=== PATIENT | male | born 1965 | race Caucasian/White ===

== ENCOUNTER 2018-06-15 10:26 | Day surgery (SDC) | payer BC ==
[2018-06-13 17:09] VITALS: BMI 26.6
[~2018-06-15 10:26] MED LIST: LACTATED RINGERS 1,000 ML IV SCH
[2018-06-15 10:59] VITALS: RESP 18; TEMP 98.2
[2018-06-15] MEDS ORDERED: LIDOCAINE 1% 20 ML VIAL (10MG/ML) FOR IV START INTRADERMA ONE (11:00)
[2018-06-15] MEDS ORDERED: PROPOFOL 10 MG/ML 20 ML VIAL IV ONE (11:37)
--- NOTE | 2018-06-15 11:58 | P.PCN ---
Date of Procedure: 06/15/18 Procedure(s) Performed: BRIEF HISTORY: Patient is a 53-year-old pleasant white male, scheduled for an elective colonoscopy as a part of screening for colon neoplasia. He does have family history of colon cancer diagnosis in his mom at age 60.. PROCEDURE PERFORMED: Colonoscopy. PREOPERATIVE DIAGNOSIS: Screening for colon cancer. IV sedation per Anesthesia. PROCEDURE: After informed consent was obtained, the patient, was brought into the endoscopy unit. IV sedation was administered by Anesthesia under continuous monitoring. Digital rectal examination was normal. Initially the Olympus CF- 160 flexible video colonoscope was then inserted in the rectum, gradually advanced into the cecum without any difficulty. Careful examination was performed as the scope was gradually being withdrawn. Ileocecal valve and the appendiceal orifice were visualized and appeared normal. Prep was excellent. Mucosa of the cecum, ascending colon, transverse colon, descending colon, sigmoid colon, and rectum appeared normal. Retroflexion was performed in the rectum and no lesions were seen. The patient tolerated the procedure well. IMPRESSION: Normal-appearing colon from rectum to cecum with no evidence of colorectal neoplasia. RECOMMENDATIONS: Findings of this examination were discussed with the patient as well as his family. He was advised to have a repeat screening colonoscopy in 5 years from now because of family history of colon cancer..
[2018-06-15 12:19] VITALS: BP 145/89; PULSE 73
== END 2018-06-15 12:30 | disposition home or self-care (01) ==
LOC: ORWHC2ENDO 10:26
PROVIDERS: ATTEND Internal Medicine Gastroenterology
DX: Z12.11 Encounter for screening for malignant neoplasm of colon (principal); Z80.0 Family history of malignant neoplasm of digestive organs; Z79.82 Long term (current) use of aspirin; Z72.0 Tobacco use
CPT/HCPCS: J2704; G0105

== ENCOUNTER 2019-10-08 21:10 | Observation (INO) | payer BC ==
[2019-10-09] MEDS: MORPHINE SULFATE 2 MG/ML SYRINGE IVP PRN ×2 (00:40→06:30)
[2019-10-09] MEDS ORDERED: MORPHINE SULFATE 4 MG/ML SYRINGE IVP PRN (13:21)
[2019-10-09] MEDS ORDERED: HYDROcodone/APAP 7.5-325MG 1 EACH TAB PO PRN (13:22)
[2019-10-09] MEDS ORDERED: VANCOMYCIN IV PER PHARMACY 1 EACH MISC MISCELLANE PRN (13:23)
[2019-10-09] MEDS ORDERED: VANCOMYCIN 1,500 MG in SODIUM CHLORIDE 0.9% 250 ML IVPB ONE (14:00)
--- NOTE | 2019-10-09 14:00 | P.CNOR ---
History of Present Illness - [facility] Consult date: 10/09/19 Consult reason: joint pain History of present illness: Patient is a 54-year-old male who was transferred from [facility] last night to [facility] with regards to bilateral hand cellulitis. Patient states that he noticed a pimple on the left arm, more in the antecubital fossa region last Tuesday. He did pop it on his own and had no other issues. Over the next few days he started to notice progressive swelling, redness and pain in the bilateral hands. Ice Tuesday, patient felt very feverish and sick, he reported to [facility] yesterday due to feeling worse in the pain and swelling of the hands. They transferred patient to [facility], he was admitted under internal medicine. Patient was evaluated today at bedside, Dr. Hester and I were both present to examine the patient. Patient complains of more and swelling involving the left hand. The right hand is tolerable at this time but has worsened over the last few days. Patient denies any previous surgery involving the bilateral hands. He takes no medications, he has no significant past medical history. He admits to quitting drinking about 18 years ago, he occasionally smokes cigars. He denies any IV drug use. 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 He cannot remember anything specifically happening at work that would contribute to this current infection. He has no other orthopedic complaints at this time Review of Systems Constitutional: Reports as per [facility] Past Medical History Past Medical History: No Reported History Additional Past Medical History / Comment(s): HX SHATTERED LT HEEL. History of Any Multi-Drug Resistant Organisms: None Reported Past Surgical History: Orthopedic Surgery Additional Past Surgical History / Comment(s): LT KNEE SCOPE. Past Anesthesia/Blood Transfusion Reactions: No Reported Reaction Past Psychological History: No Psychological Hx Reported Smoking Status: Light tobacco smoker Past Alcohol Use History: Heavy Additional Past Alcohol Use History / Comment(s): SMOKES CIGAR DAILY. HX ETOH ABUSE, QUIT 2000 Past Drug Use History: None Reported - Past Family History Mother Family Medical History: Cancer Medications and Allergies Home Medications Medication Instructions Recorded Confirmed Type Aspirin EC [Ecotrin Low Dose] 81 mg PO HS 06/13/18 10/09/19 History Multivitamins, Thera [Multivitamin 1 tab PO HS 06/13/18 10/09/19 History (formulary)] Allergies Allergy/AdvReac Type Severity Reaction Status Date / Time No Known Allergies Allergy Verified 10/09/19 08:19 Physical Examination Left upper extremity: Obvious swelling, erythema and soft tissue swelling present over the 1st MCP joint. There is fluctuance in changes in the skin noted in that area. There is obvious swelling of the entire hand. He has moderate stiffness throughout the digits when attempting to flex the hand. His sensory exam to light touch is intact. There is no pain along the flexor aspect of the hand. Radial pulses 2+. Right upper extremity: Obvious swelling, erythema and soft tissue swelling noted more over the dorsum of the hand. His full range of motion with extension and flexion. There is skin changes and fluctuance present over the dorsum of the hand. Sensory exam to light touch throughout the areas intact. No pain along the flexor aspect of the hand. Radial pulses 2+ Assessment and Plan Plan: Imaging: I did order bilateral hand x-rays, awaiting results Assessment: 1. Multifocal bilateral hand abscess 2. Cellulitis bilateral hands Plan: Multiple lab tests were ordered for this patient. We will plan to proceed with incision and drainage with irrigation and debridement of the bilateral hand abscesses on 10/10/2019. Infectious disease recommendations Internal medicine recommendations Obtain consent Nothing by mouth after midnight Time with Patient: Less than 30
[2019-10-09 14:13] LABS: Basophils % (A) 0 %; Eosinophils # (A) 0.1 k/uL (0-0.7); Eosinophils % (A) 0 %; HCT 39.7 % (39.0-53.0); HGB 13.3 gm/dL (13.0-17.5); Lymphocytes # (A) 0.8 k/uL (1.0-4.8); Lymphocytes % (A) 5 %; MCH 29.9 pg (25.0-35.0); MCHC 33.7 g/dL (31.0-37.0); MCV 88.9 fL (80.0-100.0); Mean Platelet Volume 8.2; Monocytes # (A) 0.9 k/uL (0-1.0); Monocytes % (A) 6 %; Neutrophils # (A) 13.3 k/uL (1.3-7.7); Neutrophils % (A) 88 %; Platelet Count 213 k/uL (150-450); RBC 4.46 m/uL (4.30-5.90); WBC 15.2 k/uL (3.8-10.6)
[2019-10-09 14:22] LABS: ALT 20 U/L (21-72); AST 22 U/L (17-59); African American GFR (CKD) >90 (>60 ml/min/1.73 sqM); Albumin 3.5 g/dL (3.5-5.0); Alkaline Phosphatase 75 U/L (38-126); Anion Gap 9 mmol/L; Blood Urea Nitrogen 12 mg/dL (9-20); C Reactive Protein 85.3 mg/L (<10.0); Calcium 8.4 mg/dL (8.4-10.2); Carbon Dioxide 23 mmol/L (22-30); Chloride 104 mmol/L (98-107); Glucose 146 mg/dL (74-99); Non-African American GFR(CKD) 88 (>60 ml/min/1.73 sqM); Potassium 3.7 mmol/L (3.5-5.1); Sodium 136 mmol/L (137-145); Total Bilirubin 0.7 mg/dL (0.2-1.3); Total Protein 6.6 g/dL (6.3-8.2)
[2019-10-09] MEDS: FAMOTIDINE 20 MG TAB PO SCH ×2 (14:39→20:34)
[2019-10-09] MEDS: SODIUM CHLORIDE 0.9% 1,000 ML IV SCH (14:39)
[2019-10-09] MEDS: KETOROLAC 30 MG/ML 1 ML VIAL IVP PRN (14:40)
[2019-10-09 15:17] LABS: Erythrocyte Sedimentation Rate 47 mm/hr (0-15)
[2019-10-09 15:20] LABS: Prothrombin Time 10.8 sec (9.0-12.0)
--- NOTE | 2019-10-09 16:13 | XR ---
EXAMINATION TYPE: XR hand complete bilateral DATE OF EXAM: 10/09/2019 CLINICAL HISTORY: Bilateral hand pain and swelling TECHNIQUE: Frontal, lateral and oblique images of the bilateral hands were obtained. COMPARISON: None. FINDINGS: There is no acute fracture/dislocation evident in either hand. Bony proliferative changes seen of the second metacarpal phalangeal joint on the right and joint space narrowing of the first me tacarpal phalangeal joint as well as the first carpometacarpal joint. A punctate density is seen of t he volar aspect of the soft tissues near the proximal middle phalanx of the third digit measuring 2 m m. Radiopaque foreign body should be evaluated for. On the right there are similar appearing linear d ensities of the radial soft tissues overlying the base of the proximal phalanx also measuring 2 mm an d on the radial aspect of the fifth digit overlying the base of the middle phalanx. There is diffuse soft tissue swelling of the second digit most prominent proximally and radially. Mild joint space mathieu rowing of the first carpometacarpal joint and bony proliferative change with joint space narrowing of the fourth distal interphalangeal joint of the left hand. IMPRESSION: 1. Linear radiopaque foreign bodies of the bilateral hands as detailed above. Focal soft tissue swell ing is seen of the second digit of the left hand surrounding the foreign body. Exploration is recomme nded. 2. Acute fracture or dislocation of either hand. 3. Mild bilateral arthropathy as detailed above.
--- NOTE | 2019-10-09 16:14 | P.HPIM ---
History of Present Illness Patient is a 54-year-old transferred from [facility] for abscess of the left hands and let us of the right hand. Patient started having these symptoms about 45 days ago started as a pimple was having low-grade fevers as well. Patient received couple antibiotics at the [facility] unsure what antibiotics he received patient has an area of pimple-like pocket with pus draining out of it for from which we'll obtain cultures both anaerobic and aerobic, blood cultures were obtained at the other facility. Patient will be started on vancomycin. 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 Patient does smoke a cigar here and there mostly less than 1 a day. Review of Systems REVIEW OF SYSTEMS: CONSTITUTIONAL: As mentioned in HPI HEENT: No recent visual problems or hearing problems. Denied any sore throat. CARDIOVASCULAR: No chest pain, orthopnea, PND, no palpitations, no syncope. PULMONARY: No shortness of breath, no cough, no hemoptysis. GASTROINTESTINAL: No diarrhea, no nausea, no vomiting, no abdominal pain. NEUROLOGICAL: No headaches, no weakness, no numbness. HEMATOLOGICAL: Denies any bleeding or petechiae. GENITOURINARY: Denies any burning micturition, frequency, or urgency. MUSCULOSKELETAL/RHEUMATOLOGICAL: Denies any joint pain, swelling, or any muscle pain. ENDOCRINE: Denies any polyuria or polydipsia. The rest of the 14-point review of systems is negative. Past Medical History Past Medical History: No Reported History Additional Past Medical History / Comment(s): HX SHATTERED LT HEEL. History of Any Multi-Drug Resistant Organisms: None Reported Past Surgical History: Orthopedic Surgery Additional Past Surgical History / Comment(s): LT KNEE SCOPE. Past Anesthesia/Blood Transfusion Reactions: No Reported Reaction Past Psychological History: No Psychological Hx Reported Smoking Status: Light tobacco smoker Past Alcohol Use History: Heavy Additional Past Alcohol Use History / Comment(s): SMOKES CIGAR DAILY. HX ETOH ABUSE, QUIT 2000 Past Drug Use History: None Reported - Past Family History Mother Family Medical History: Cancer Medications and Allergies Home Medications Medication Instructions Recorded Confirmed Type Aspirin EC [Ecotrin Low Dose] 81 mg PO HS 06/13/18 10/09/19 History Multivitamins, Thera [Multivitamin 1 tab PO HS 06/13/18 10/09/19 History (formulary)] Allergies Allergy/AdvReac Type Severity Reaction Status Date / Time No Known Allergies Allergy Verified 10/09/19 08:19 Physical Exam Vitals: Vital Signs Temp Pulse Resp BP Pulse Ox 10/09/19 07:00 98.5 F 108 H 12 134/79 99 10/08/19 23:12 98.9 F 92 15 127/68 Intake and Output 10/09/19 10/09/19 10/09/19 06:59 14:59 22:59 Intake Total 450 Balance 450 Intake: IV 450 Sodium Chloride 0.9% 1, 200 000 ml @ 100 mls/hr IV . Q10H [facility] Rx#:[id number] Vancomycin 1,500 mg In 250 Sodium Chloride 0.9% 250 ml @ 125 mls/hr IVPB ONCE ONE Rx#:[id number] Other: Voiding Method Toilet Weight 78 kg PHYSICAL EXAMINATION: GENERAL: The patient is alert and oriented x3, not in any acute distress. Well developed, well nourished. HEENT: Pupils are round and equally reacting to light. EOMI. No scleral icterus. No conjunctival pallor. Normocephalic, atraumatic. No pharyngeal erythema. No thyromegaly. CARDIOVASCULAR: S1 and S2 present. No murmurs, rubs, or gallops. PULMONARY: Chest is clear to auscultation, no wheezing or crackles. ABDOMEN: Soft, nontender, nondistended, normoactive bowel sounds. No palpable organomegaly. MUSCULOSKELETAL: No joint swelling or deformity. EXTREMITIES: No cyanosis, clubbing, or pedal edema. Patient had swelling in both hands left hand had an abscess in the base of the, cellulitis of the right hand NEUROLOGICAL: Gross neurological examination did not reveal any focal deficits. SKIN: No rashes. Results CBC & Chem 7: 10/09/19 13:51 10/09/19 13:51 Labs: Abnormal Lab Results - Last 24 Hours (Table) 10/09/19 10/09/19 Range/Units 13:51 13:51 WBC 15.2 H (3.8-10.6) k/uL Neutrophils # 13.3 H (1.3-7.7) k/uL Lymphocytes # 0.8 L (1.0-4.8) k/uL ESR 47 H (0-15) mm/hr Sodium 136 L (137-145) mmol/L Glucose 146 H (74-99) mg/dL ALT 20 L (21-72) U/L C-Reactive Protein 85.3 H (<10.0) mg/L Thrombosis Risk Factor Assmnt - Choose All That Apply Each Factor Represents 1 point: Age 41-60 years Other Risk Factors: No Other congenital or acquired thrombophilia - If yes, enter type in comment: No Thrombosis Risk Factor Assessment Total Risk Factor Score: 1 Thrombosis Risk Factor Assessment Level: Low Risk Assessment and Plan Plan: 1 bilateral hand cellulitis and abscess of the left hand: Patient was started on vancomycin no history of MRSA in the past I did not appreciate any lymphadenopathy in the elbow or axillary area. Infectious disease was consulted. Arthritic surgery was consulted patient may need drainage of the abscess of on the base of the left index finger. -Sepsis secondary to abscess and cellulitis of the hands. Patient was started on IV fluids.
[2019-10-10] MEDS: KETOROLAC 30 MG/ML 1 ML VIAL IVP PRN ×3 (00:46→20:56)
[2019-10-10] MEDS ORDERED: ACETAMINOPHEN TAB 325 MG TAB PO PRN (01:00)
[2019-10-10] MEDS ORDERED: VANCOMYCIN 1,500 MG in SODIUM CHLORIDE 0.9% 250 ML IVPB SCH (06:00)
[2019-10-10] MEDS ORDERED: IV FLUID CONTINUATION 1,000 ML IV ONE (06:23)
[2019-10-10] MEDS ORDERED: ONDANSETRON 4 MG/2 ML VIAL IVP ONE (06:33)
[2019-10-10] MEDS ORDERED: PROPOFOL 10 MG/ML 20 ML VIAL IV ONE (06:54)
[2019-10-10] MEDS ORDERED: MIDAZOLAM 2 MG/2 ML VIAL ONE (06:54)
[2019-10-10] MEDS ORDERED: fentaNYL (PF) 50 MCG/ML 2 ML AMP ONE (06:54)
[2019-10-10] MEDS ORDERED: LIDOCAINE 1% INJ 10MG/ML (20 ML MDV) ONE (06:54)
[2019-10-10] MEDS ORDERED: ceFAZolin 1,000 MG in SODIUM CHLORIDE 0.9% 1,000 ML IRRIGATION ONE ×4 (07:41)
[2019-10-10] MEDS ORDERED: LACTATED RINGERS 1,000 ML IV ONE (07:46)
--- NOTE | 2019-10-10 08:04 | P.OP ---
Date of Procedure: 10/10/19 Preoperative Diagnosis: Multifocal abscesses right and left hand Postoperative Diagnosis: Same Procedure(s) Performed: Incision and drainage bilateral dorsal hand abscesses/irrigation and debridement Anesthesia: MILANA Surgeon: Jez Hester Estimated Blood Loss (ml): 30 Pathology: other (Deep cultures) Condition: stable Disposition: PACU Indications for Procedure: The patient's a 54-year-old male who presented with 5-6 day history of progressive bilateral dorsal hand swelling/abscesses. He was transferred from an outside institution. A discussion of the risks and benefits of operative intervention was made with the patient. Specific risks to include persistence of infection and possible need for subsequent procedures was discussed. Informed consent was obtained. Operative Findings: As below Description of Procedure: The patient was brought to the operating room, and after induction of general anesthesia both upper extremities were prepped and draped in normal fashion. I began on the left side. The tourniquet was inflated to 250 mmHg. A Bennell type incision was made along the dorsum of the left index MCP joint extending to the dorsal hand. Significant purulence was expressed. Deep cultures were obtained. The dissection was made down to level of the extensor tendon. It did not appear to enter the joint. The wound edges were sharply debrided with a scalpel. This was copiously irrigated with normal saline. A Amada drain was placed. The wound edges were loosely reapproximated with simple 3-0 nylon suture. The tourniquet was deflated less than 20 minutes total tourniquet time. Attention was then paid towards the right hand. The tourniquet was inflated to 250 mmHg. Three 2 cm dorsal hand incisions were then made over the palpable abscesses. Significant purulence was expressed. Deep cultures were obtained. Dissection was made down to level of the extensor tendons. The wound edges were sharply debrided with a scalpel. The wounds were loosely irrigated with normal saline. A Amada drain was placed. The wound edges were loosely reapproximated with simple 3-0 nylon sutures. A sterile dressing was applied. The tourniquet was deflated less than 20 minutes total tourniquet time. The patient was then awoken from general anesthesia and transferred to recovery room in good condition. Blood loss was estimated at 30 mL. No complications were incurred. Sponge and needle counts were correct at the end of the case.
[2019-10-10] MEDS: HYDROmorphone 1 MG/ML 1 ML SYRINGE IVP ONE ×4 (08:12→08:28)
[2019-10-10] MEDS: FAMOTIDINE 20 MG TAB PO SCH ×2 (09:12→19:56)
[2019-10-10] MEDS: SODIUM CHLORIDE 0.9% 1,000 ML IV SCH ×3 (09:14→19:41)
--- NOTE | 2019-10-10 09:32 | P.CONS ---
History of Present Illness - Reason for Consult Consult date: 10/09/19 hand cellulitis Requesting physician: Jerman Lund - Chief Complaint Bilateral hand pain and swelling x few days - History of Present Illness Patient is a 54-year male who has been transferred from [facility] for evaluation of bilateral hand abscess and cellulitis the patient symptoms started last Tuesday and apparently the patient had noticed to have a small pimple that he squeezed on it subsequently he noticed the dorsum of bilateral hand started getting swollen and red the patient describing the area to be painful pain is throbbing almost 10-10 with severity with associated swelling and redness did have a small area that opened up on the right hand with minimal purulent drainage the patient be complaining of feeling feverish and sic k patient was initially evaluated in the hospital but hospital subsequent has been transferred to [facility] for further management of his bilateral hand abscess and cellulitis, patient has been evaluated by orthopedics and the patient did have x-rays of the hand done which did show some focal soft tissue swelling left hand with some foreign body, the patient has been started on vancomycin with plan for a surgical drainage of this abscess tomorrow infectious was consulted for further recommendation to guide antibiotic therapy. The patient did have a elevated white count of 15,000 and a fever of 99.8 Review of Systems CONSTITUTIONAL: Positive for weakness. Fever EYES: No complaint. ENT:No complaint. RESPIRATORY: No complaint. CARDIOVASCULAR: No complaint. GENITOURINARY: No complaint. GASTROINTESTINAL: No complaint. MUSCULOSKELETAL: As per history of present illness. INTEGUMENTARY: As per history of present illness. PSYCHOLOGICAL: No complaint. ENDOCRINE: No complaint. NEUROLOGIC: No complaint. Past Medical History Past Medical History: No Reported History Additional Past Medical History / Comment(s): HX SHATTERED LT HEEL. History of Any Multi-Drug Resistant Organisms: None Reported Past Surgical History: Orthopedic Surgery Additional Past Surgical History / Comment(s): LT KNEE SCOPE. Past Anesthesia/Blood Transfusion Reactions: No Reported Reaction Past Psychological History: No Psychological Hx Reported Smoking Status: Light tobacco smoker Past Alcohol Use History: Heavy Additional Past Alcohol Use History / Comment(s): SMOKES CIGAR DAILY. HX ETOH ABUSE, QUIT 2000 Past Drug Use History: None Reported - Past Family History Mother Family Medical History: Cancer Medications and Allergies Home Medications Medication Instructions Recorded Confirmed Type Aspirin EC [Ecotrin Low Dose] 81 mg PO HS 06/13/18 10/09/19 History Multivitamins, Thera [Multivitamin 1 tab PO HS 06/13/18 10/09/19 History (formulary)] Allergies Allergy/AdvReac Type Severity Reaction Status Date / Time No Known Allergies Allergy Verified 10/09/19 08:19 Physical Exam Vitals: Vital Signs Temp Pulse Resp BP Pulse Ox 10/09/19 20:46 99.8 F H 100 16 132/63 95 10/09/19 15:00 98 F 107 H 12 122/74 96 10/09/19 07:00 98.5 F 108 H 12 134/79 99 Intake and Output 10/09/19 10/09/19 10/10/19 14:59 22:59 06:59 Intake Total 450 300 Balance 450 300 Intake: IV 450 300 Sodium Chloride 0.9% 1, 200 300 000 ml @ 100 mls/hr IV . Q10H [facility] Rx#:[id number] Vancomycin 1,500 mg In 250 Sodium Chloride 0.9% 250 ml @ 125 mls/hr IVPB ONCE ONE Rx#:[id number] GENERAL DESCRIPTION: Middle-aged male lying in bed, no distress. No tachypnea or accessory muscle of respiration use. HEENT: Shows Pallor , no scleral icterus. Oral mucous membrane is dry. No pha ryngeal erythema or thrush NECK: Trachea central, no thyromegaly. LUNGS: Unlabored breathing. Clear to auscultation anteriorly. No wheeze or crackle. HEART: S1, S2, regular rate and rhythm. No loud murmur ABDOMEN: Soft, no tenderness , guarding or rigidity, no organomegaly EXTREMITIES: Bilateral hand dorsum with significant swelling redness which is mostly marked at the base of the second MCP joint warm and tender to touch SKIN: No rash, no masses palpable. NEUROLOGICAL: The patient is awake, alert, oriented x3, mood and affect normal. Results CBC & Chem 7: 10/09/19 13:51 10/09/19 13:51 Labs: Abnormal Lab Results - Last 24 Hours (Table) 10/09/19 10/09/19 Range/Units 13:51 13:51 WBC 15.2 H (3.8-10.6) k/uL Neutrophils # 13.3 H (1.3-7.7) k/uL Lymphocytes # 0.8 L (1.0-4.8) k/uL ESR 47 H (0-15) mm/hr Sodium 136 L (137-145) mmol/L Glucose 146 H (74-99) mg/dL ALT 20 L (21-72) U/L C-Reactive Protein 85.3 H (<10.0) mg/L Microbiology - Last 24 Hours (Table) 10/09/19 14:50 Anaerobic Culture - Preliminary Hand - Right 10/09/19 14:50 Wound Culture - Preliminary Hand - Right Assessment and Plan Assessment: patient admitted hospital with sepsis in this patient who did have a fever , mild tachycardia and elevated white count sources bilateral hand abscess more marked at the left hand dorsum at the base of second MCP joint will need to cover for gram-positive skin raphael such as strep and staph aureus and cover for community associated MRSA (1) Hand abscess Current Visit: Yes Status: Acute Code(s): L02.519 - CUTANEOUS ABSCESS OF UNSPECIFIED HAND SNOMED Code(s): 9984127 (2) Sepsis Current Visit: Yes Status: Acute Code(s): A41.9 - SEPSIS, UNSPECIFIED ORGANISM SNOMED Code(s): 39381681 Plan: 1-vancomycin pharmacy to dose target trough of 15 while watching his kidney function and vancomycin trough closely 2-deep cultures at the time of surgical drainage tomorrow We will follow on clinical condition and cultures to further adjust medication if needed Thank you for this consultation will follow this patient along with you Time with Patient: Greater than 30
[2019-10-10] MEDS ORDERED: CALCIUM CARBONATE 500 MG CHEWABLE PO PRN (12:05)
--- NOTE | 2019-10-10 12:14 | CDI ---
Documentation Clarification Form Date: 10/10/2019 12:02:00 PM From: Mckenna Suarez RN, CCDS Admit Date: 10/08/2019 11:09:00 PM Patient Name: Carlos oRsas Visit Number: [id number] ATTENTION: The Clinical Documentation Specialists (CDI) and [facility] Coding Staff appreciate your assistance in clarifying documentation. Please respond to the clarification below the line at the bottom and electronically sign. The CDI & [facility] Coding staff will review the response and follow-up if needed. Please note: Queries are made part of the Legal Health Record. If you have any questions, please contact the author of this message via ITS. Dr. Jez Hester Per your progress notes/operative note, a debridement was performed on 10/10 and requires further specificity. History/Risk Factors No documented H Clinical Indicators: Presented to [facility] with abscess to hands with fever Treatment: 10/10 Procedure: "Incision and drainage bilateral dorsal hand abscesses/irrigation and debridement. The wound edges were sharply debrided with a scalpel." Five elements required for accurate and compliant documentation of a debridement: 1. Technique used (e.g., excisional, excised, cutting, etc.) 2. Instrument(s) used (e.g., scalpel, curette, etc.) 3. Nature of the tissue removed (e.g., necrotic, devitalized tissues, non- viable tissue, etc.) 4. Appearance and size of the wound (e.g., down to fresh bleeding tissue, 7cm x 10cm, etc.) 5. Depth of the debridement* (e.g., skin, subcutaneous tissue, fascia, muscle, bone, etc.) In order to capture the severity of condition and code the appropriate procedure; could you please document the following: Excisional debridement (the removal of necrotic, devitalized tissue or slough by means of cutting away of tissue) Non-excisional debridement (the removal of necrotic, devitalized tissue or slough by means of flushing, brushing, or washing. (Irrigation) Other; please specify Unable to determine (Last Revision: January 2018) Wounds were debrided with a scapel excising necrotic tissue down to the level of the tendon sheath/subcutaneous tissue. Left hand incision was 7cm, right hand 3cm, 3cm, 3cm. [facility]
[2019-10-10] MEDS: VANCOMYCIN 1,500 MG in SODIUM CHLORIDE 0.9% 250 ML IVPB SCH (12:18)
--- NOTE | 2019-10-10 15:41 | P.PN ---
Subjective Progress Note Date: 10/10/19 Principal diagnosis: Patient is a 54-year-old transferred from [facility] for abscess of the left hands and cellulitis of the right hand. Patient started having these s ymptoms about 4-5 days ago started as a pimple was having low-grade fevers as well. Patient received couple antibiotics at the [facility] unsure what antibiotics he received patient has an area of pimple-like pocket with pus draining out of it for from which we'll obtain cultures both anaerobic and aerobic, blood cultures were obtained at the other facility. Patient will be started on vancomycin. 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 Patient does smoke a cigar here and there mostly less than 1 a day. 10/10/2019 Patient is sitting up in bed in no acute distress stating he is feeling a little tired. Patient recently underwent incision and drainage of bilateral dorsal hand abscesses along with irrigation and debridement. Bilateral hands are dressed and wrapped in Ralph wraps at this time. Infectious disease is following. Patient will continue on IV antibiotics in the form of vancomycin. Will await culture finalization of the wounds. Currently patient denies any chest pain, shortness of breath, or palpitations. Patient is afebrile. Patient denies any nausea or vomiting and has been nothing by mouth for his procedure this morning and awaiting lunch at this time. Objective - Vital Signs Vital signs: Vital Signs Temp 98.3 F 10/10/19 14:33 Pulse 88 10/10/19 14:33 Resp 15 10/10/19 14:33 BP 123/77 10/10/19 14:33 Pulse Ox 98 10/10/19 14:33 Intake & Output 10/09/19 10/10/19 10/10/19 18:59 06:59 18:59 Intake Total 450 1500 1602 Output Total 30 Balance 450 1500 1572 Weight 77.564 kg Intake: IV 450 1500 1502 Sodium Chloride 0.9% 1, 200 1100 500 000 ml @ 100 mls/hr IV . Q10H [facility] Rx#:[id number] Vancomycin 1,500 mg In 250 Sodium Chloride 0.9% 250 ml @ 125 mls/hr IVPB ONCE ONE Rx#:[id number] Oral 100 Output: Estimated Blood Loss 30 Other: # Voids 1 - Exam GENERAL: The patient is alert and oriented x3, not in any acute distress. Well developed, well nourished. HEENT: Pupils are round and equally reacting to light. EOMI. No scleral icterus. No conjunctival pallor. Normocephalic, atraumatic. No pharyngeal erythema. No thyromegaly. CARDIOVASCULAR: S1 and S2 present. No murmurs, rubs, or gallops. PULMONARY: Chest is clear to auscultation, no wheezing or crackles. ABDOMEN: Soft, nontender, nondistended, normoactive bowel sounds. No palpable organomegaly. MUSCULOSKELETAL: No joint swelling or deformity. EXTREMITIES: No cyanosis, clubbing, or pedal edema. Patient had swelling in both hands left hand had an abscess in the base of the, cellulitis of the right hand. Bilateral hands are wrapped with surgical dressings and Ralph wraps with positive pulses and cap refill less than 3 noted bilaterally. Remnants of Betadine from this morning's procedure noted on exam. NEUROLOGICAL: Gross neurological examination did not reveal any focal deficits. SKIN: No rashes. Bilateral hands have surgical dressings and Ralph wraps that are dry and intact. - Labs CBC & Chem 7: 10/09/19 13:51 10/09/19 13:51 Labs: Microbiology - Last 24 Hours (Table) 10/10/19 08:00 Wound Culture - Preliminary Hand - Right 10/10/19 08:05 Wound Culture - Preliminary Hand - Left 10/10/19 08:05 Anaerobic Culture - Preliminary Hand - Left 10/10/19 08:00 Anaerobic Culture - Preliminary Hand - Right 10/09/19 14:50 Gram Stain - Preliminary Hand - Right Wound Culture - Preliminary 10/09/19 14:50 Anaerobic Culture - Preliminary Hand - Right Assessment and Plan Assessment: -bilateral hand cellulitis and abscess of the left hand: Patient was started on vancomycin no history of MRSA in the past. I did not appreciate any lymphadenopathy in the elbow or axillary area. Infectious disease was consulted. Orthopedic surgery was consulted patient may need drainage of the abscess of on the base of the left index finger. -Sepsis secondary to abscess and cellulitis of the hands. Patient was started on IV fluids.
--- NOTE | 2019-10-10 22:37 | PN ---
PROGRESS NOTE DATE OF SERVICE: 10/10/2019 REASON FOR FOLLOWUP: Bilateral hand abscess, cellulitis. INTERVAL HISTORY: The patient was taken to the OR this morning. The patient is status post I&D of bilateral hands, dorsum abscess. Patient tolerated the procedure. Pain post surgery is currently controlled with pain medication. Denies having any chest pain or cough. No nausea, vomiting. No abdominal pain or diarrhea. PHYSICAL EXAMINATION: Blood pressure is 117/80 with a pulse of 93, temperature 98.4. He is 99% on room air. General description is a middle-aged male up in the chair in no distress. RESPIRATORY SYSTEM: Unlabored breathing. Clear to auscultation anteriorly. HEART: S1, S2. Regular rate and rhythm. ABDOMEN: Soft. No tenderness. Bilateral hands are currently dressed up. No obvious drainage on the dressing. LABS: Wound cultures are currently pending. Blood culture negative so far. DIAGNOSTIC IMPRESSION AND PLAN: Patient with bilateral hand abscess, status post surgical drainage. Cultures currently pending. To continue vancomycin, adjusting antibiotics further based on culture report. Continue with supportive care. MMODL / IJN: [id number] /
[2019-10-11] MEDS: VANCOMYCIN 1,500 MG in SODIUM CHLORIDE 0.9% 250 ML IVPB SCH ×2 (00:56→13:15)
[2019-10-11] MEDS: SODIUM CHLORIDE 0.9% 1,000 ML IV SCH ×2 (05:43→14:00)
[2019-10-11] MEDS: KETOROLAC 30 MG/ML 1 ML VIAL IVP PRN ×2 (08:10→20:27)
[2019-10-11] MEDS: FAMOTIDINE 20 MG TAB PO SCH ×2 (08:10→20:27)
[2019-10-11 09:56] LABS: Basophils % (A) 0 %; Eosinophils # (A) 0.1 k/uL (0-0.7); Eosinophils % (A) 1 %; HGB 11.4 gm/dL (13.0-17.5); Lymphocytes # (A) 0.6 k/uL (1.0-4.8); Lymphocytes % (A) 6 %; MCH 29.2 pg (25.0-35.0); MCHC 32.6 g/dL (31.0-37.0); MCV 89.6 fL (80.0-100.0); Mean Platelet Volume 7.7; Monocytes # (A) 0.7 k/uL (0-1.0); Monocytes % (A) 6 %; Neutrophils # (A) 9.3 k/uL (1.3-7.7); Neutrophils % (A) 86 %; Platelet Count 197 k/uL (150-450); RBC 3.91 m/uL (4.30-5.90); WBC 10.9 k/uL (3.8-10.6)
[2019-10-11 10:19] LABS: African American GFR (CKD) >90 (>60 ml/min/1.73 sqM); Anion Gap 6 mmol/L; Blood Urea Nitrogen 9 mg/dL (9-20); Calcium 8.1 mg/dL (8.4-10.2); Carbon Dioxide 25 mmol/L (22-30); Chloride 109 mmol/L (98-107); Glucose 116 mg/dL (74-99); Non-African American GFR(CKD) >90 (>60 ml/min/1.73 sqM); Potassium 3.7 mmol/L (3.5-5.1); Sodium 140 mmol/L (137-145)
--- NOTE | 2019-10-11 13:43 | P.PN ---
Subjective Progress Note Date: 10/11/19 Principal diagnosis: status post I&D bilateral hand abscess Patient is evaluated today at bedside, he is resting comfortably. Postoperative bandage is in good position and condition. His pain is controlled, he's noticed significant improvement since surgery. Objective - Vital Signs Vital signs: Vital Signs Temp 98.9 F 10/11/19 07:00 Pulse 95 10/11/19 07:00 Resp 17 10/11/19 07:00 BP 125/71 10/11/19 07:00 Pulse Ox 98 10/11/19 07:00 Intake & Output 10/10/19 10/11/19 10/11/19 18:59 06:59 18:59 Intake Total 1961 1565 Output Total 30 Balance 1931 1565 Intake: IV 1502 800 Sodium Chloride 0.9% 1, 500 800 000 ml @ 100 mls/hr IV . Q10H [facility] Rx#:[id number] Oral 460 765 Output: Estimated Blood Loss 30 Other: Voiding Method Toilet # Voids 1 1 2 - Exam Bilateral hands: Postoperative bandage is removed good position and condition, no active drainage. Sensation to light touch Xarelto extremities are intact. Skin is warm to touch. - Labs CBC & Chem 7: 10/11/19 09:15 10/11/19 09:15 Labs: Abnormal Lab Results - Last 24 Hours (Table) 10/11/19 10/11/19 Range/Units 09:15 09:15 WBC 10.9 H (3.8-10.6) k/uL RBC 3.91 L (4.30-5.90) m/uL Hgb 11.4 L (13.0-17.5) gm/dL Hct 35.0 L (39.0-53.0) % Neutrophils # 9.3 H (1.3-7.7) k/uL Lymphocytes # 0.6 L (1.0-4.8) k/uL Chloride 109 H (98-107) mmol/L Glucose 116 H (74-99) mg/dL Calcium 8.1 L (8.4-10.2) mg/dL Microbiology - Last 24 Hours (Table) 10/10/19 08:00 Gram Stain - Preliminary Hand - Right Wound Culture - Preliminary Presumptive Staph aureus 10/10/19 08:05 Gram Stain - Preliminary Hand - Left Wound Culture - Preliminary Presumptive Staph aureus 10/09/19 14:50 Gram Stain - Preliminary Hand - Right Wound Culture - Preliminary Presumptive Staph aureus 10/09/19 14:52 Blood Culture - Preliminary Blood No Growth after 24 hours 10/10/19 08:05 Anaerobic Culture - Preliminary Hand - Left 10/10/19 08:00 Anaerobic Culture - Preliminary Hand - Right Assessment and Plan Plan: Assessment: Postoperative day #1 status post I&D bilateral hand abscess Plan: Plan to remove bandages and reapply dressing tomorrow Other medical staff director recommendations Hopeful discharge tomorrow Time with Patient: Less than 30
--- NOTE | 2019-10-11 14:04 | P.PN ---
Subjective Progress Note Date: 10/11/19 Principal diagnosis: Patient is a 54-year-old transferred from [facility] for abscess of the left hands and cellulitis of the right hand. Patient started having these s ymptoms about 4-5 days ago started as a pimple was having low-grade fevers as well. Patient received couple antibiotics at the [facility] unsure what antibiotics he received patient has an area of pimple-like pocket with pus draining out of it for from which we'll obtain cultures both anaerobic and aerobic, blood cultures were obtained at the other facility. Patient will be started on vancomycin. 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 Patient does smoke a cigar here and there mostly less than 1 a day. 10/10/2019 Patient is sitting up in bed in no acute distress stating he is feeling a little tired. Patient recently underwent incision and drainage of bilateral dorsal hand abscesses along with irrigation and debridement. Bilateral hands are dressed and wrapped in Ralph wraps at this time. Infectious disease is following. Patient will continue on IV antibiotics in the form of vancomycin. Will await culture finalization of the wounds. Currently patient denies any chest pain, shortness of breath, or palpitations. Patient is afebrile. Patient denies any nausea or vomiting and has been nothing by mouth for his procedure this morning and awaiting lunch at this time. 10/11/2019 Patient is sitting up in bed in no acute distress asking about when he might possibly be discharged. Cultures are currently pending and will await culture finalization to determine proper antibiotics. Patient may require IV antibiotic therapy in the outpatient setting. Case management is following and working on discharge needs with a possible Homecare company to infuse IV antibiotics if necessary. Infectious disease is following. Patient's dressings are dry and intact with Ralph wraps and will be getting another dressing change in the morning. No acute overnight issues. White blood count is trending down and is currently 10.9. Patient is currently on IV antibiotics in the form of Vancomycin and will continue at this time until we have finalization of cultures. Cultures thus far are showing Staphylococcus aureus. Objective - Vital Signs Vital signs: Vital Signs Temp 98.9 F 10/11/19 07:00 Pulse 95 10/11/19 07:00 Resp 17 10/11/19 07:00 BP 125/71 10/11/19 07:00 Pulse Ox 98 10/11/19 07:00 Intake & Output 10/10/19 10/11/19 10/11/19 18:59 06:59 18:59 Intake Total 1961 1565 Output Total 30 Balance 1931 1565 Intake: IV 1502 800 Sodium Chloride 0.9% 1, 500 800 000 ml @ 100 mls/hr IV . Q10H [facility] Rx#:[id number] Oral 460 765 Output: Estimated Blood Loss 30 Other: Voiding Method Toilet # Voids 1 1 2 - Exam GENERAL: The patient is alert and oriented x3, not in any acute distress. Well developed, well nourished. HEENT: Pupils are round and equally reacting to light. EOMI. No scleral icterus. No conjunctival pallor. Normocephalic, atraumatic. No pharyngeal erythema. No thyromegaly. CARDIOVASCULAR: S1 and S2 present. No murmurs, rubs, or gallops. PULMONARY: Chest is clear to auscultation, no wheezing or crackles. ABDOMEN: Soft, non-tender, non-distended, normoactive bowel sounds. No palpable organomegaly. MUSCULOSKELETAL: No joint swelling or deformity. EXTREMITIES: No cyanosis, clubbing, or pedal edema. Patient had swelling in both hands left hand had an abscess in the base of the, cellulitis of the right hand. Bilateral hands are wrapped with surgical dressings and Ralph wraps with positive pulses and cap refill less than 3 noted bilaterally. NEUROLOGICAL: Gross neurological examination did not reveal any focal deficits. SKIN: No rashes. Bilateral hands have surgical dressings and Ralph wraps that are dry and intact. - Labs CBC & Chem 7: 10/11/19 09:15 10/11/19 09:15 Labs: Abnormal Lab Results - Last 24 Hours (Table) 10/11/19 10/11/19 Range/Units 09:15 09:15 WBC 10.9 H (3.8-10.6) k/uL RBC 3.91 L (4.30-5.90) m/uL Hgb 11.4 L (13.0-17.5) gm/dL Hct 35.0 L (39.0-53.0) % Neutrophils # 9.3 H (1.3-7.7) k/uL Lymphocytes # 0.6 L (1.0-4.8) k/uL Chloride 109 H (98-107) mmol/L Glucose 116 H (74-99) mg/dL Calcium 8.1 L (8.4-10.2) mg/dL Microbiology - Last 24 Hours (Table) 10/10/19 08:00 Gram Stain - Preliminary Hand - Right Wound Culture - Preliminary Presumptive Staph aureus 10/10/19 08:05 Gram Stain - Preliminary Hand - Left Wound Culture - Preliminary Presumptive Staph aureus 10/09/19 14:50 Gram Stain - Preliminary Hand - Right Wound Culture - Preliminary Presumptive Staph aureus 10/09/19 14:52 Blood Culture - Preliminary Blood No Growth after 24 hours 10/10/19 08:05 Anaerobic Culture - Preliminary Hand - Left 10/10/19 08:00 Anaerobic Culture - Preliminary Hand - Right Assessment and Plan Assessment: -bilateral hand cellulitis and abscess of the left hand: Patient was started on vancomycin no history of MRSA in the past. I did not appreciate any lymphadenopathy in the elbow or axillary area. Infectious disease is following. Orthopedic surgery following as well. patient is status post incision and drainage of bilateral hand abscesses -Sepsis secondary to abscess and cellulitis of the hands. Patient was started o n IV fluids. Much improved.
--- NOTE | 2019-10-11 22:50 | PN ---
PROGRESS NOTE DATE OF SERVICE: 10/11/2019 REASON FOR FOLLOWUP: Bilateral hand abscess and cellulitis. INTERVAL HISTORY: The patient is currently afebrile. He has been breathing comfortably. Pain to the bilateral hand areas has slightly decreased in intensity. He denies having any chest pain, shortness of breath or cough. No abdominal pain or diarrhea. PHYSICAL EXAMINATION: Blood pressure is 129/85 with a pulse of 85, temperature 98.3. He is 92% on room air. General description is a middle-aged male lying in bed in no distress. RESPIRATORY SYSTEM: Unlabored breathing. Clear to auscultation anteriorly. HEART: S1, S2. Regular rate and rhythm. ABDOMEN: Soft. No tenderness. Bilateral hands are currently dressed up. No obvious drainage on the dressing. LABS: Hemoglobin is 11.4, white count 10.9 with a BUN of 9, creatinine 0.87. Wound culture with MSSA. Blood culture has been negative. DIAGNOSTIC IMPRESSION AND PLAN: Patient with bilateral hand abscess, status post drainage. Culture with MSSA. Antibiotic will be adjusted to cefazolin 2 grams q.8 hours. In view of extensive infection, he will benefit from PICC line and outpatient IV cefazolin therapy for at least 2 weeks. Once antibiotic is arranged, he will be able to go home from ID standpoint. MMODL / IJN: [id number] /
[2019-10-12] MEDS: SODIUM CHLORIDE 0.9% 1,000 ML IV SCH ×2 (00:22→10:49)
[2019-10-12] MEDS: FAMOTIDINE 20 MG TAB PO SCH (08:52)
[2019-10-12] MEDS: KETOROLAC 30 MG/ML 1 ML VIAL IVP PRN ×2 (08:54→15:46)
[2019-10-12] MEDS ORDERED: IV FLUID CONTINUATION 1,000 ML IV ONE (09:37)
[2019-10-12] MEDS ORDERED: LIDOCAINE 1% INJ 10MG/ML (20 ML MDV) ONE (09:37)
[2019-10-12] MEDS ORDERED: LIDOCAINE 1% INJ 10MG/ML (20 ML MDV) SQ ONE (10:03)
--- NOTE | 2019-10-12 10:42 | P.PN ---
Subjective Progress Note Date: 10/12/19 Principal diagnosis: status post I&D bilateral hand abscess Patient is evaluated today at bedside, he is resting comfortably. pain is well- controlled. Dr. Hester was available today with me to examine the patient. Objective - Vital Signs Vital signs: Vital Signs Temp 98.3 F 10/12/19 10:33 Pulse 80 10/12/19 10:33 Resp 16 10/12/19 10:33 BP 130/80 10/12/19 10:33 Pulse Ox 97 10/12/19 10:33 Intake & Output 10/11/19 10/12/19 10/12/19 18:59 06:59 18:59 Intake Total 1565 590 190 Balance 1565 590 190 Intake: IV 800 Sodium Chloride 0.9% 1, 800 000 ml @ 100 mls/hr IV . Q10H [facility] Rx#:[id number] Oral 765 590 190 Other: Voiding Method Toilet # Voids 2 2 - Exam Bilateral hands: postoperative bandages were removed on both hands. Amada drain were removed bilaterally. No obvious active drainage visualized. No areas of fluctuance appreciated. Erythema and soft tissue swelling is significantly improved. Range of motion is improved with hand and fingers of both hands. Neurovascular exam is intact. - Labs CBC & Chem 7: 10/11/19 09:15 10/11/19 09:15 Labs: Microbiology - Last 24 Hours (Table) 10/09/19 14:50 Gram Stain - Final Hand - Right Wound Culture - Final Staphylococcus aureus 10/09/19 14:52 Blood Culture - Preliminary Blood No Growth after 48 hours 10/10/19 08:00 Gram Stain - Preliminary Hand - Right Wound Culture - Preliminary Presumptive Staph aureus 10/10/19 08:05 Gram Stain - Preliminary Hand - Left Wound Culture - Preliminary Presumptive Staph aureus Assessment and Plan Plan: Assessment: Postoperative day #2 status post I&D bilateral hand abscess Plan: wound care instructions were discussed with the patient, case management is working on setting him up with home care Patient has received a PICC line today, outpatient antibiotics are also being set up Plan for follow-up in the office to be reevaluated by Dr. Hester in 1 week Time with Patient: Less than 30
[2019-10-12] MEDS ORDERED: VANCOMYCIN TROUGH DUE 1 EACH MISC MISCELLANE ONE (11:00)
[2019-10-12 11:14] LABS: Basophils % (A) 0 %; Eosinophils # (A) 0.3 k/uL (0-0.7); Eosinophils % (A) 2 %; HCT 37.8 % (39.0-53.0); HGB 12.4 gm/dL (13.0-17.5); Lymphocytes # (A) 0.9 k/uL (1.0-4.8); Lymphocytes % (A) 8 %; MCH 29.3 pg (25.0-35.0); MCHC 32.9 g/dL (31.0-37.0); MCV 89.3 fL (80.0-100.0); Mean Platelet Volume 7.6; Monocytes # (A) 0.6 k/uL (0-1.0); Monocytes % (A) 6 %; Neutrophils # (A) 9.1 k/uL (1.3-7.7); Neutrophils % (A) 82 %; Platelet Count 262 k/uL (150-450); RBC 4.24 m/uL (4.30-5.90)
[2019-10-12 13:47] VITALS: BP 124/73; PULSE 86; RESP 17; TEMP 98.1
--- NOTE | 2019-10-12 13:53 | PN ---
PROGRESS NOTE DATE OF SERVICE: 10/12/2019 REASON FOR FOLLOWUP: Bilateral hand abscess and cellulitis, MSSA. INTERVAL HISTORY: The patient is currently afebrile, has been breathing comfortably. Patient denies having any chest pain or any cough. No nausea, vomiting, abdominal pain, overall pain to the bilateral hands has decreased intensity. PHYSICAL EXAMINATION: Blood pressure is 130/80 with a pulse of 80, temperature 98.3, he is 97% on room air. General description is a middle-aged male, up in the bed in no distress. RESPIRATORY SYSTEM: Unlabored breathing, clear to auscultation anteriorly. HEART: S1, S2. Regular rate and rhythm. ABDOMEN: Soft, no tenderness. EXTREMITIES: Bilateral left hand dressing was removed. There is some swelling and redness at the index fingerwith some resolution. No foul smelling drainage. LABS: Hemoglobin is 12.4, white count of 11. DIAGNOSTIC IMPRESSION AND PLAN: Patient with bilateral hand abscess, cellulitis, status post drainage, culture with MSSA. Patient on cefazolin 2 g p.o. continue for 2 weeks, in view of extensive infection. Baseline sedimentation rate of 47 and CRP of 85.0. Will monitor weekly, follow up in the office in 1 week. Continue supportive care. MMODL / IJN: [id number] / MTDD
--- NOTE | 2019-10-12 14:18 | P.DS ---
<Ramona Anguiano - Last Filed: 10/12/19 14:09> Providers Expected date of discharge: 10/12/19 Hospital Course: Final diagnosis -bilateral hand cellulitis and abscess of the left hand -Sepsis secondary to abscess and cellulitis of the hands Discharge disposition Patient will be discharged in a stable condition with guarded prognosis to home and will be having Homecare follow for IV antibiotic therapy in the outpatient setting. Patient will follow-up at the wound care center with Dr. Del Toro in one week. Patient will also be following up with Dr. Granger as well as his primary care provider in the outpatient setting as discussed and scheduled. Patient is currently on IV cefazolin and will continue at this time. Total time taken is 35 minutes. History of present illness This is a 54-year-old male who was recently admitted as a transfer from [facility] for bilateral abscesses to his left and right hands along with cellulitis noted in the right hand and was being closely monitored. During hospitalization patient underwent incision and drainage of the bilateral dorsal hand abscesses along with irrigation and debridement with Dr. Granger. Today, surgical dressings were removed and Amada drains were removed as well with significant swelling and redness improvement from previous. Multiple sutures of the left hand were noted. Capillary Refill less than 3 with positive pulses noted. Patient denies any tingling or numbness to bilateral hands and has full movement in his fingers. Patient states that he is doing much better and would like to go home today. Case management was following closely and have arranged for IV antibiotic therapy in the outpatient setting with home care. Patient's original cultures were growing MSSA and due to his extensive infection patient will follow-up with infectious disease in one week. Patient will remain on IV antibiotic therapy for a minimum of 2 weeks. A PICC line was placed. Currently patient denies any chest pain, shortness of breath, or palpitations. Patient has been afebrile. Patient denies any nausea or vomiting and has been tolerating diet. Currently patient's condition is stable and is ready for discharge today. Guarded prognosis. On Exam vital signs are stable. Temp is 98.1F, pulse is 86, respirations are 17, blood pressure is 124/73, oxygen saturation is 99% on room air. Cardio S1, S2 are present. Respiratory system shows clear to auscultation. Abdomen is soft, thin, nontender. Nervous system shows no focal deficits. Patient Condition at Discharge: Stable Plan - Discharge Summary Discharge Rx Participant: No New Discharge Prescriptions: New Famotidine [Pepcid] 20 mg PO BID 30 Days #60 tab ceFAZolin [Kefzol] 2 gm IVP Q8HR #42 vial HYDROcodone/APAP 5-325MG [[place] 5-325] 1 tab PO Q6HR PRN #10 tab PRN Reason: Pain Continue Aspirin EC [Ecotrin Low Dose] 81 mg PO HS Multivitamins, Thera [Multivitamin (formulary)] 1 tab PO HS Discharge Medication List Aspirin EC [Ecotrin Low Dose] 81 mg PO HS 06/13/18 [History] Multivitamins, Thera [Multivitamin (formulary)] 1 tab PO HS 06/13/18 [History] Famotidine [Pepcid] 20 mg PO BID 30 Days #60 tab 10/12/19 [Rx] HYDROcodone/APAP 5-325MG [[place] 5-325] 1 tab PO Q6HR PRN #10 tab 10/12/19 [Rx] ceFAZolin [Kefzol] 2 gm IVP Q8HR #42 vial 10/12/19 [Rx] Follow up Appointment(s)/Referral(s): Kyle Rivera MD [REFERRING] - 10/18/19 3:15 pm Tate Del Toro MD [STAFF PHYSICIAN] - 10/22/19 10:15 am Jez Hester MD [STAFF PHYSICIAN] - 10/25/19 9:40 am Ambulatory/Diagnostic Orders: Basic Metabolic Panel [LAB.AMB] Location: None Selected C Reactive Protein [LAB.AMB] Location: None Selected Complete Blood Count w/diff [LAB.AMB] Time Frame: 3 Days, Location: None Selected Complete Blood Count w/diff [LAB.AMB] Location: None Selected Patient Instructions/Handouts: Abscess Incision and Drainage (DC), Peripherally Inserted Central Catheters and Midline Catheters (DC) Activity/Diet/Wound Care/Special Instructions: [facility] home care: #[phone] Activity Limited until follow-up Follow-up with infectious disease in one week Follow-up with Dr. Granger in one week Continue with IV antibiotic infusions Continue current diet Discharge Disposition: HOME WITH HOME HEALTH SERVICES <Sheet,Lex E - Last Filed: 10/12/19 23:51> Providers Date of admission: 10/08/19 23:09 Attending physician: Live Epperson MD Consults: 10/09/19 13:22 Consult Physician Routine Consulting Provider: Tate Del Toro Consult Reason/Comments: cellulitis Do you want consulting provider notified?: Yes 10/09/19 13:23 Consult Physician Routine Consulting Provider: Jez Hester Consult Reason/Comments: clyde hand cellulitis Do you want consulting provider notified?: Yes Primary care physician: Stated None Hospital Course: I have discussed the plan and I have reviewed the note with [employer] RAMONA and I agree with it except what is mentioned below Pt is seen and examined by me at bed side pt has B/L hand cellulitis , secondary to MSSA, he does not know how he got th daniella. no open wound. ID and ortho have been following up with the pt , s/o ID on left hand , improving , Has picture in his mobile when was worse. pt has picc/midline, he will recieve cefazoline for 2wk, he told me the [facility] nurse will do the infusion for him . i went over the appointment date and time with pcp, ortho and ID and he agrees to all of them . pt is clinically improving pt was cleared by orthopedic and ID teams for discharge Pt was instructed about the problems and management plan and Pt verbalized understanding and acceptance Pt is found stable and can be discharged to the community but needs follow up as outpt
--- NOTE | 2019-10-12 14:48 | IR ---
EXAMINATION TYPE: IR cvc insert >=5 years DATE OF EXAM: 10/12/2019 COMPARISON: NONE CLINICAL HISTORY: Infection Needs long-term intravenous access for antibiotics. PROCEDURE: After informed consent, the skin overlying the left basilic vein was localized with ultrasound and no uzair to be compressible and patent. An ultrasound image was obtained and submitted on the patient's c mojica. The overlying skin was prepped and draped and Lidocaine was used for local anesthesia. A skin donita was made with a scalpel. Access was gained to the vein under ultrasound guidance with a 21 gau ge needle and a 0.018 inch wire was advanced. Access site was dilated with Peel-Away sheath and cath eter tailored to the appropriate length and advanced such that the distal tip is at the cavoatrial ju nction. Spot image was obtained verifying placement. Catheter was fixed to the skin and a sterile d ressing was placed following hemostasis. Catheter was aspirated and flushed with saline. Patient wa s discharged in stable condition without complication. Maximal barrier technique is utilized. Ultras ound image is documented on the chart. Ultrasound used with sterile technique. Fluoro time and fluoroscopic images submitted to document procedure: 38 intraoperative C-arm images, 0.3 minutes fluoroscopy time utilized IMPRESSION: STATUS POST ULTRASOUND AND FLUOROSCOPIC GUIDED PICC LINE PLACEMENT, READY FOR USE. THIS PROCEDURE WAS PERFORMED BY THE UNDERSIGNED.
== END 2019-10-12 17:15 | disposition home or self-care (01) ==
LOC: INTOOBSV 23:09 → 4SSUR 23:09 → UNDODISIN 10-10 15:30
PROVIDERS: ADMIT Internal Medicine; ATTEND Internal Medicine
DX: A41.9 Sepsis, unspecified organism (principal); L02.512 Cutaneous abscess of left hand; L03.114 Cellulitis of left upper limb; L03.113 Cellulitis of right upper limb; F17.290 Nicotine dependence, other tobacco product, uncomplicated; B95.61 Methicillin susceptible Staphylococcus aureus infection as the cause of diseases classified elsewhere; Z98.890 Other specified postprocedural states; Z80.9 Family history of malignant neoplasm, unspecified
CPT/HCPCS: 96376 ×4; 96365; 96366 ×4; 96367; 96375; 36573; 80053; 80048; 85652; 85025 ×3; 85610; 86140; 87040; 87070 ×2; 87205 ×2; 87075 ×2; 87077 ×2; 87186 ×2; 73130; 10061; G0378 ×4; G0379; C1751; C1769; J2250; J3370 ×3; J0690 ×2; J2405; J2001 ×2; J3010; J1885 ×4; J2270; J1170; J2704